=== PATIENT | male | born 1975 | race Two or more races ===

== ENCOUNTER → 2025-03-20 | Outpatient (CLI) | payer BC, SELFPAY ==
--- NOTE | 2025-03-20 08:24 | XR_ITS ---
Examination: Thoracic spine 3 views Technique one AP lateral coned lateral upper dorsal spine 3 views Date and time: March 20, 2025, 0829 hours INDICATIONS: Upper back pain beginning one month ago. FINDINGS: Mild osteopenia. Upper thoracic levoscoliosis 14 degrees Thoracolumbar dextroscoliosis 17 degrees Chronic mild osteoporotic wedging mid dorsal vertebral bodies No acute thoracic fracture Moderate diffuse thoracic degenerative disc disease Moderate thoracic spondylosis IMPRESSION: Scoliosis as above Moderate diffuse thoracic degenerative disc disease
[2025-03-20 09:40] LABS: Collection Type, Urine Clean Catch; Squamous Epithelial Cell,Urine 0 /hpf (0-5); WBC,Urine 0 /hpf (0-5)
[2025-03-20 10:11] LABS: Basophils # (Auto) 0.1 Thou/mm3 (0.0-0.2); Basophils % (Auto) 1 % (0-2.5); Eosinophils # (Auto) 0.4 Thou/mm3 (0.0-0.5); Eosinophils % (Auto) 6 % (0-10); Hematocrit 45.6 % (41.0-53.0); Hemoglobin 15.7 g/dL (13.5-16.0); Immature Granulocytes Auto 0.03 Thou/mm3 (0.00-0.00); Lymphocytes # (Auto) 1.9 Thou/mm3 (1.0-4.8); Lymphocytes % (Auto) 30 % (10-50); Mean Corpuscular HGB Conc 34.4 g/dl (31.0-37.0); Mean Corpuscular Hemoglobin 30.4 pg (25.0-35.0); Mean Corpuscular Volume 88 fL (80-100); Monocytes # (Auto) 0.7 Thou/mm3 (0.0-0.8); Monocytes % (Auto) 10 % (0-12); Neutrophils # (Auto) 3.4 Thou/mm3 (1.8-7.7); Neutrophils % (Auto) 53 % (37-80); Nucleated Red Blood Cell # 0.00 Thou/mm3 (0.00-0.00); Nucleated Red Blood Cell % 0 /100 WBC (0); Platelet Count 264 Thou/mm3 (140-440); RDW Standard Deviation 40.1 fL (35.1-43.9); Red Blood Count 5.17 Miln/mm3 (4.50-5.90); White Blood Count 6.4 Thou/mm3 (3.8-10.6)
[2025-03-20 10:13] LABS: Alanine Aminotransferase 19 U/L (10-49); Albumin, Serum 4.5 gm/dL (3.5-5.0); Albumin/Globulin Ratio 2.0 (1.2-2.2); Alkaline Phosphatase 87 U/L (46-116); Anion Gap 8 (7-16); Aspartate Amino Transferase 27 U/L (0-34); BUN/Creatinine Ratio 13 Ratio (12-20); Bilirubin,Total 0.7 mg/dL (0.3-1.2); Blood Urea Nitrogen 13 mg/dL (9-23); Calcium 9.2 mg/dL (8.3-10.6); Calcium (Corrected) 9.2 mg/dL (8.5-10.1); Carbon Dioxide 29.0 mMol/L (20.0-31.0); Cardiac Risk Estimate 3.8 RATIO (4.0-6.7); Chloride 104 mMol/L (98-107); Cholesterol 219 mg/dL (132-200); Creatinine (Component) 1.0 mg/dL (0.6-1.3); Globulin 2.3 gm/dL (2.3-3.5); Glucose 102 mg/dL (74-106); HDL Cholesterol 57 mg/dL (40-60); LDL Cholesterol,Calculated 138 mg/dL (0-130); Osmolality,Calculated 281 (275-295); Potassium 4.3 mMol/L (3.4-5.1); Sodium 141 mMol/L (136-145); Thyroid Stimulating Hormone 1.87 uIU/mL (0.55-4.78); Total Protein 6.8 gm/dL (5.7-8.2); Triglycerides 120 mg/dL (30-150); eGFR > 60 See Note
[2025-03-20 10:19] LABS: Bilirubin,Urine Negative (Negative); Blood,Urine Negative (Negative); Clarity,Urine Clear (Clear/Hazy); Color,Urine Colorless (Lt Yel-Yel); Glucose, Urine Negative (Negative); Ketones,Urine Negative (Negative); Leukocyte Esterase,Urine Negative (Negative); Nitrite,Urine Negative (Negative); PH,Urine 7.5 (5.0-7.0); Protein,Urine Negative (Neg - Trace); RBC,Urine < 1 /hpf (0-3); Specific Gravity,Urine 1.007 (1.001-1.035); Urobilinogen,Urine Negative mg/dL (0.0-1.0)
== END | disposition home or self-care (01) ==
LOC: CDIM 08:25 → COPL 08:50
PROVIDERS: PCP Family Medicine; Referring Provider Family Medicine; Visit Provider Radiology Diagnostic Radiology
DX: M51.34 Other intervertebral disc degeneration, thoracic region (principal); M41.84 Other forms of scoliosis, thoracic region; Z00.00 Encounter for general adult medical examination without abnormal findings
CPT/HCPCS: 36415; 72070; 80053; 80061; 81001; 84443; 85025

== ENCOUNTER 2025-04-02 19:49 | Emergency (ER) | payer BC, SELFPAY ==
[2025-04-02 19:50] VITALS: BP 163/98; PULSE 74; RESP 17; TEMP 36.9; O2SAT 96; BMI 33.9
--- NOTE | 2025-04-02 19:52 | XR_ITS ---
Examination: PA chest single view TECHNIQUE: Upright PA chest single view Date and time: April 02, 2025 1958 hours INDICATIONS: Chest pain cardiac palpitations today. FINDINGS: Normal heart size The lungs are clear. The osseous structures are intact IMPRESSION: No active disease
--- NOTE | 2025-04-02 19:52 | EKG_ITS ---
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
--- NOTE | 2025-04-02 19:52 | PD.EDCHEST ---
ED Chest Pain RME/HPI General Chief Complaint: Chest Pain Stated Complaint: TIGHTNESS IN CHEST Time Seen by Provider: 04/02/25 19:52 Source: patient Arrival date/time: 04/02/25 19:49 Mode of arrival: ambulatory Limitations: no limitations RME / HPI RME / HPI narrative: Here today with a 30-40 minute history of chest tightness and palpitations. This started while he was mowing his lawn at home. No syncope, lower leg edema, or dyspnea. No chronic disease. No smoking, alcohol abuse, or drug use. No fevers or chills. No abdominal pain, nausea, vomiting. Related Data Allergies Allergy/AdvReac Type Severity Reaction Status Date / Time No Known Allergies Allergy Verified 04/02/25 19:53 Review of Systems Review of Systems Systems Reviewed: All systems reviewed, normal except as documented ED Exam General Limitations: Present no limitations General appearance: Present alert and in no apparent distress Head Head exam: Present atraumatic Eye Eye exam: Present normal appearance, PERRL and EOMI ENT ENT exam: Present normal exam, normal oropharynx and mucous membranes moist Neck Neck exam: Present normal inspection, full ROM and trachea midline Chest Chest inspection: Present normal inspection and symmetric chest wall rise Respiratory Respiratory exam: Present normal lung sounds bilaterally Cardiovascular Cardiovascular exam: Present regular rate, normal rhythm and normal heart sounds Abdominal Exam Abdominal exam: Present soft and normal bowel sounds Extremities Exam Extremities exam: Present normal inspection and full ROM Back Exam Back exam: Present normal inspection and full ROM Neurological Exam Neurological exam: Present alert, oriented X3 and CN II-XII intact Psychiatric Psychiatric exam: Present normal affect and normal mood Skin Skin exam: Present warm, dry, intact and normal color Course Quality Measures none Orders Category Date Time Status EKG (ED ONLY) *Do not use* NOW Care 04/02/25 19:52 Completed EKG (ED Only) Stat Exams 04/02/25 19:52 Draft XR chest 1V Stat Exams 04/02/25 19:52 Completed BNP [B-Type Natriuretic Peptide] Stat Lab 04/02/25 21:15 Completed CBC Stat Lab 04/02/25 21:15 Completed CMP [Comprehensive Metabolic Panel] Stat Lab 04/02/25 21:15 Completed Lipase Stat Lab 04/02/25 21:15 Completed Mag [Magnesium] Stat Lab 04/02/25 21:15 Completed Troponin I Stat Lab 04/02/25 21:15 Completed Troponin I Stat Lab 04/02/25 23:50 Completed Aspirin [Ecotrin] Med 04/02/25 19:52 Discontinued 162 mg PO X1 ONE Vital Signs Vital signs: Vital Signs Temperature 98.4 F 04/02/25 19:50 Pulse Rate 74 04/02/25 19:50 Respiratory Rate 17 04/02/25 19:50 Blood Pressure 163/98 H 04/02/25 19:50 Pulse Oximetry (%) 96 04/02/25 19:50 Oxygen Delivery Method Room Air 04/02/25 19:50 Chest Pain MDM Narrative MDM Narrative:: Here today with a 30-40 minute history of chest tightness and palpitations. This started while he was mowing his lawn at home. No syncope, lower leg edema, or dyspnea. No chronic disease. No smoking, alcohol abuse, or drug use. No fevers or chills. No abdominal pain, nausea, vomiting. On exam, patient is nontoxic-appearing and in no visible signs stress. Patient initially seen by me in triage, he had a regular radial pulse however his EKG was unremarkable. Patient was reexamined later and had a regular pulse. Patient was given his initial test results, his CBC, CMP, BNP, chest x-ray are unremarkable. EKG which was normal sinus rhythm. Initial troponin is negative. I do believe the patient would benefit from a repeat troponin. Discussed with the patient. If second troponin is negative he will be discharged in the ER. Patient agrees to follow-up with his primary doctor but return as anytime for any worsening emergent changes. This discussed with the nightshift physician, Dr. Chavis, who will review the repeat troponin as my shift has ended. Patient data External records reviewed:: None Clinical information provided by:: patient Social determinants that could affect healthcare access:: none Patient has the following chronic illnesses:: n/a How is presenting disease/condition affected by chronic disease/condition?: no chronic disease Evaluation data The following diagnostics were reviewed and interpreted by me:: lab results, radiology exam(s) and EKG tracing(s) (Normal sinus rhythm no ST changes or dynamic T waves) Lab and/or radiology exams considered but not ordered:: n/a Interpretation Summary: Unremarkable workup Medications / Prescriptions Medications or Prescriptions considered but not ordered:: n/a Medication administrations:: Medication Administration History Discontinued Medications Aspirin (Aspirin Ec 81 Mg Tabec) 162 mg PO X1 ONE Stop: 04/02/25 19:53 Last Admin: 04/02/25 20:11 Dose: 162 mg Documented By: see above Consultations Consultation(s) initiated? (list below): No Diagnosis Chest Pain Differential Diagnosis: stable angina, atypical chest pain, st elevation myocardial infarction and chest pain Most likely diagnosis given after review of the tests above:: Chest pain Admission Indicated Admission indicated?: not indicated Admission Request Was there a request for admission?: No Disposition Plan Disposition Plan: Discharge Discharge Attestation Discharge Attestation: The patient and all family members were given an opportunity to ask questions and understood the discharge instructions. Discharge instructions specifically effects, indications for sooner follow up or return to the emergency department, and the expected course of current diagnosis. Patient condition: Stable Discharge Plan Plan Patient Disposition: HOME (Self Care) Patient condition on transfer: Stable Prescriptions/Referrals Referrals: No Primary/Family,Physician [Primary Care Provider] - In 1 week Elke Toledo MD [Physician] - In 1 week Problem List Clinical Impression: Chest pain Patient/Caregiver Discharge Instructions Education Materials: ED Chest Pain, Noncardiac Additional Instructions: - Your workup here today was unremarkable. - Please follow-up with your primary doctor for recheck. - You may also contact cardiology to schedule follow-up appointment. - Return to the emergency room at anytime for any worsening or emergent changes. Print Language: [place]ian Stand Alone Forms: Selina Award Info., Patient Portal Info Letter
[2025-04-02] MEDS: ASPIRIN EC 81 MG TABEC 162 MG PO (20:11)
[2025-04-02 21:46] LABS: Basophils # (Auto) 0.1 Thou/mm3 (0.0-0.2); Basophils % (Auto) 1 % (0-2.5); Eosinophils # (Auto) 0.4 Thou/mm3 (0.0-0.5); Eosinophils % (Auto) 5 % (0-10); Hematocrit 44.9 % (41.0-53.0); Hemoglobin 15.5 g/dL (13.5-16.0); Immature Granulocytes Auto 0.03 Thou/mm3 (0.00-0.00); Lymphocytes # (Auto) 1.7 Thou/mm3 (1.0-4.8); Lymphocytes % (Auto) 22 % (10-50); Mean Corpuscular HGB Conc 34.5 g/dl (31.0-37.0); Mean Corpuscular Hemoglobin 30.2 pg (25.0-35.0); Mean Corpuscular Volume 87 fL (80-100); Monocytes # (Auto) 0.7 Thou/mm3 (0.0-0.8); Monocytes % (Auto) 10 % (0-12); Neutrophils # (Auto) 4.7 Thou/mm3 (1.8-7.7); Neutrophils % (Auto) 62 % (37-80); Nucleated Red Blood Cell # 0.00 Thou/mm3 (0.00-0.00); Nucleated Red Blood Cell % 0 /100 WBC (0); Platelet Count 270 Thou/mm3 (140-440); RDW Standard Deviation 39.1 fL (35.1-43.9); Red Blood Count 5.14 Miln/mm3 (4.50-5.90); White Blood Count 7.6 Thou/mm3 (3.8-10.6)
[2025-04-02 22:11] LABS: B-Type Natriuretic Peptide < 20 pg/mL (0-100)
[2025-04-02 22:13] LABS: Alanine Aminotransferase 17 U/L (10-49); Albumin, Serum 4.7 gm/dL (3.5-5.0); Albumin/Globulin Ratio 2.0 (1.2-2.2); Alkaline Phosphatase 87 U/L (46-116); Anion Gap 10 (7-16); Aspartate Amino Transferase 26 U/L (0-34); BUN/Creatinine Ratio 13 Ratio (12-20); Bilirubin,Total 0.8 mg/dL (0.3-1.2); Blood Urea Nitrogen 13 mg/dL (9-23); Calcium 9.8 mg/dL (8.3-10.6); Calcium (Corrected) 9.8 mg/dL (8.5-10.1); Carbon Dioxide 28.2 mMol/L (20.0-31.0); Chloride 103 mMol/L (98-107); Creatinine (Component) 1.0 mg/dL (0.6-1.3); Estimated Creatinine Clearance 114.9 mL/min (>60); Globulin 2.4 gm/dL (2.3-3.5); Glucose 94 mg/dL (74-106); Lipase 37 U/L (12-53); Magnesium 1.7 mg/dL (1.6-2.6); Osmolality,Calculated 281 (275-295); Potassium 4.0 mMol/L (3.4-5.1); Sodium 141 mMol/L (136-145); Total Protein 7.1 gm/dL (5.7-8.2); Troponin I < 0.020 ng/mL (0.0-0.045); eGFR > 60 See Note
[2025-04-03 00:22] LABS: Troponin I < 0.020 ng/mL (0.0-0.045)
[2025-04-03 00:48] VITALS: BP 153/76; PULSE 72; RESP 16; TEMP 36.8; O2SAT 98
== END 2025-04-03 00:49 | disposition home or self-care (01) ==
PROVIDERS: Physician Assistant Medical; Emergency Provider Emergency Medicine
DX: R07.9 Chest pain, unspecified (principal); R00.2 Palpitations
CPT/HCPCS: 36415; 71045; 80053; 83690; 83735; 83880; 84484; 85025; 93005; 99283; A9270

== ENCOUNTER → 2025-05-29 | Outpatient (CLI) | payer OTHER, SELFPAY ==
--- NOTE | 2025-05-29 15:12 | EKG_ITS ---
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
[2025-05-29 16:02] LABS: Anion Gap 7 (7-16); BUN/Creatinine Ratio 9 Ratio (12-20); Blood Urea Nitrogen 10 mg/dL (9-23); Calcium 9.3 mg/dL (8.3-10.6); Carbon Dioxide 29.9 mMol/L (20.0-31.0); Chloride 105 mMol/L (98-107); Creatinine (Component) 1.1 mg/dL (0.6-1.3); Glucose 98 mg/dL (74-106); Osmolality,Calculated 282 (275-295); Potassium 3.9 mMol/L (3.4-5.1); Sodium 142 mMol/L (136-145); eGFR > 60 See Note
== END | disposition home or self-care (01) ==
LOC: COPL 14:48
PROVIDERS: Referring Provider Surgery Surgery of the Hand; Visit Provider Surgery Surgery of the Hand
DX: Z01.818 Encounter for other preprocedural examination (principal); M77.12 Lateral epicondylitis, left elbow
CPT/HCPCS: 36415; 80048; 93005